=== PATIENT | female | born 2000 | race Caucasian/White ===

== ENCOUNTER 2024-06-23 12:40 | Emergency (ER) | payer OTHER ==
[~2024-06-23] VITALS: Ht 157.5 cm; Wt 59.1 kg
[2024-06-23 12:46] VITALS: BP 148/89; PULSE 98; RESP 18; TEMP 98.6
[2024-06-23 13:06] LABS: APPEARANCE,URINE CLEAR (CLEAR); BILIRUBIN,URINE NEGATIVE (NEGATIVE); COLOR,URINE COLORLESS (YELLOW); GLUCOSE, URINE (UA) NEGATIVE (NEGATIVE); KETONES,URINE NEGATIVE (NEGATIVE); LEUKOCYTE ESTERASE ,URINE NEGATIVE (NEGATIVE); NITRATE,URINE NEGATIVE (NEGATIVE); OCCULT BLOOD,URINE NEGATIVE (NEGATIVE); PROTEIN,URINE NEGATIVE (NEGATIVE); SPECIFIC GRAVITIY, URINE 1.004 (1.003-1.030); UROBILINOGEN,URINE <=1.0 mg/dL (<=1.0)
== END 2024-06-23 14:16 | disposition home or self-care (01) ==
LOC: EMS 12:40
DX: R35.0 Frequency of micturition (principal)
CPT/HCPCS: 81003; 82962; 84703; 99283